=== PATIENT | female | born 1990 | race African-American/Black ===

== ENCOUNTER 2017-04-02 09:29 | Emergency (ER) | payer OTHER ==
[~2017-04-02] VITALS: Ht 154.9 cm; Wt 95.3 kg
[~2017-04-02 09:29] MED LIST: FOLIC ACID1 MG; METFORMIN HCL500 MG PO; NAPROSYN500 MG PO; NORCO 5-325 TA1 EACH PO; ONDANSETRON HCL4 M2 PO; PHENERGAN 25 MG25 M1 PO; PREDNISONE 20 M20 MG PO; PRILOSEC 20 MG20 MG PO; REGLAN 10 MG TA10 MG PO; TRAMADOL 50 MG50 MG PO
[2017-04-02 09:58] LABS: ABSOLUTE NEUTROPHILS 2.1 thou/uL (1.4-8.2); EOSINOPHILS 1.4 % (0.0-3.0); HEMATOCRIT 34.4 % (37.0-47.0); HEMOGLOBIN 11.5 gm/dL (12.0-15.0); MCH 25.6 pg (26.0-34.0); MCHC 33.5 g/dL (28.0-37.0); MCV 76.6 fL (80.0-100.0); PLATELET COUNT 276 thou/uL (150-400); POLYS 45.6 % (36.0-66.0); RBC 4.48 mil/uL (4.20-5.00); WBC 4.7 thou/uL (4.0-11.0)
[2017-04-02 09:59] LABS: MANUAL DIFF NO
[2017-04-02 10:11] LABS: ANION GAP 4 mmol/L (7-16); BUN 13 mg/dL (7-18); CALCIUM 8.8 mg/dL (8.5-10.1); CHLORIDE 105 mmol/L (98-107); CO2 29 mmol/L (21-32); CREATININE 0.8 mg/dL (0.6-1.0); GLUCOSE 92 mg/dL (74-106); POTASSIUM 4.6 mmol/L (3.5-5.1); SODIUM 138 mmol/L (136-145)
[2017-04-02 10:13] LABS: URINE BILIRUBIN NEGATIVE (Negative); URINE BLOOD 3+ (Negative); URINE COLOR YELLOW; URINE GLUCOSE-RANDOM* NEGATIVE (Negative); URINE KETONES NEGATIVE (Negative); URINE NITRITE NEGATIVE (Negative); URINE PROTEIN (DIPSTICK) NEGATIVE (Negative); URINE UROBILINOGEN 0.2 E.U./dl (0.2-1.0)
[2017-04-02 10:15] LABS: ALBUMIN 3.3 g/dL (3.4-5.0); ALKALINE PHOSPHATASE 52 U/L (46-116); DIRECT BILIRUBIN < 0.1 mg/dL (<0.1-0.3); SGOT 25 U/L (15-37); SGPT 31 U/L (30-65); TOTAL BILIRUBIN 0.3 mg/dL (<0.1-1.0); TOTAL PROTEIN 7.5 g/dL (6.4-8.2)
[2017-04-02 10:32] LABS: BACTERIA 1-9 Few /HPF (None Seen); CASTS None Seen /LPF (None Seen); CRYSTALS None Seen /LPF (None Seen); SQUAMOUS 4-10 Moderate /LPF (0-3); URINE RBC 0-2 Rare /HPF (0-2); URINE WBC 0-5 Rare /HPF (0-5)
[2017-04-02] MEDS ORDERED: OMEPRAZOLE40 MG PO (11:10)
[2017-04-02] MEDS ORDERED: CARAFATE 1 GM TA1 G1 PO (11:10)
[2017-04-02] MEDS ORDERED: ONDANSETRON HCL4 M2 PO (11:10)
[2017-04-02 11:29] VITALS: BP 107/71
== END 2017-04-02 11:30 | disposition home or self-care (01) ==
LOC: ER 09:29
PROVIDERS: Nurse Practitioner
DX: R11.2 Nausea with vomiting, unspecified (principal); R10.11 Right upper quadrant pain; E11.9 Type 2 diabetes mellitus without complications; F10.99 Alcohol use, unspecified with unspecified alcohol-induced disorder

== ENCOUNTER 2017-11-12 08:21 | Emergency (ER) | payer OTHER ==
[~2017-11-12] VITALS: Ht 154.9 cm; Wt 97.1 kg
[~2017-11-12 08:21] MED LIST changes: +CARAFATE 1 GM TA1 G1 PO; +OMEPRAZOLE40 MG PO
[2017-11-12 08:52] LABS: URINE BILIRUBIN NEGATIVE (Negative); URINE BLOOD 2+ (Negative); URINE CLARITY CLEAR; URINE COLOR YELLOW; URINE GLUCOSE-RANDOM* NEGATIVE (Negative); URINE KETONES NEGATIVE (Negative); URINE LEUKOCYTES NEGATIVE (Negative); URINE NITRITE NEGATIVE (Negative); URINE PROTEIN (DIPSTICK) NEGATIVE (Negative); URINE UROBILINOGEN 0.2 E.U./dl (0.2-1.0)
[2017-11-12 09:02] LABS: ABSOLUTE NEUTROPHILS 2.3 thou/uL (1.4-8.2); BASOPHILS 1.1 % (0.0-2.0); EOSINOPHILS 3.5 % (0.0-3.0); HEMOGLOBIN 12.2 gm/dL (12.0-15.0); LYMPHOCYTES 37.6 % (24.0-44.0); MCH 25.2 pg (26.0-34.0); MCV 76.4 fL (80.0-100.0); MONOCYTES 9.2 % (1.0-8.0); PLATELET COUNT 277 thou/uL (150-400); POLYS 48.6 % (36.0-66.0); RBC 4.84 mil/uL (4.20-5.00); RDW 14.7 % (10.5-14.5); WBC 4.8 thou/uL (4.0-11.0)
[2017-11-12 09:03] LABS: BACTERIA 1-9 Few /HPF (None Seen); CASTS None Seen /LPF (None Seen); CRYSTALS None Seen /LPF (None Seen); SQUAMOUS 4-10 Moderate /LPF (0-3); URINE RBC 3-10 Few /HPF (0-2); URINE WBC 0-5 Rare /HPF (0-5)
[2017-11-12 09:14] LABS: CALCIUM 9.2 mg/dL (8.5-10.1); CREATININE 0.9 mg/dL (0.6-1.0); POTASSIUM 3.9 mmol/L (3.5-5.1)
[2017-11-12 09:19] LABS: ALBUMIN 3.3 g/dL (3.4-5.0); DIRECT BILIRUBIN 0.1 mg/dL (<0.1-0.3); TOTAL BILIRUBIN 0.4 mg/dL (<0.1-1.0); TOTAL PROTEIN 7.4 g/dL (6.4-8.2)
[2017-11-12] MEDS ORDERED: ZOFRAN ODT4 MG PO (10:11)
[2017-11-12] MEDS ORDERED: ATIVAN0.5 MG PO (10:14)
== END 2017-11-12 10:23 | disposition home or self-care (01) ==
LOC: ER
PROVIDERS: Emergency Medicine
DX: R10.11 Right upper quadrant pain (principal); R11.0 Nausea; E11.9 Type 2 diabetes mellitus without complications

== ENCOUNTER 2018-03-17 00:11 | Emergency (ER) | payer OTHER ==
[~2018-03-17] VITALS: Ht 154.9 cm; Wt 104.3 kg
[~2018-03-17 00:11] MED LIST changes: +ATIVAN0.5 MG PO; +ZOFRAN ODT4 MG PO
[2018-03-17 01:03] LABS: URINE BILIRUBIN NEGATIVE (Negative); URINE BLOOD TRACE (Negative); URINE CLARITY CLEAR; URINE COLOR YELLOW; URINE GLUCOSE-RANDOM* NEGATIVE (Negative); URINE KETONES NEGATIVE (Negative); URINE LEUKOCYTES-REFLEX NEGATIVE (Negative); URINE NITRITE-REFLEX NEGATIVE (Negative); URINE PROTEIN (DIPSTICK) NEGATIVE (Negative); URINE UROBILINOGEN 0.2 E.U./dl (0.2-1.0)
[2018-03-17 01:07] LABS: BASOPHILS 0.8 % (0.0-2.0); EOSINOPHILS 0.8 % (0.0-3.0); HEMATOCRIT 36.2 % (37.0-47.0); HEMOGLOBIN 12.2 gm/dL (12.0-15.0); LYMPHOCYTES 32.9 % (24.0-44.0); MCH 25.3 pg (26.0-34.0); MCHC 33.8 g/dL (28.0-37.0); MCV 74.8 fL (80.0-100.0); MONOCYTES 6.8 % (1.0-8.0); PLATELET COUNT 321 thou/uL (150-400); POLYS 58.7 % (36.0-66.0); RBC 4.83 mil/uL (4.20-5.00)
[2018-03-17 01:13] LABS: CALCIUM 8.9 mg/dL (8.5-10.1); CREATININE 0.9 mg/dL (0.6-1.0)
[2018-03-17 01:21] LABS: ALBUMIN 3.5 g/dL (3.4-5.0); TOTAL BILIRUBIN 0.2 mg/dL (<0.1-1.0); TOTAL PROTEIN 8.1 g/dL (6.4-8.2)
[2018-03-17] MEDS ORDERED: ZOFRAN ODT8 MG PO (01:54)
[2018-03-17 02:31] VITALS: BP 114/65
== END 2018-03-17 02:33 | disposition home or self-care (01) ==
LOC: ER 00:11
PROVIDERS: Emergency Medicine
DX: R11.2 Nausea with vomiting, unspecified (principal); R19.7 Diarrhea, unspecified; R10.10 Upper abdominal pain, unspecified; E11.9 Type 2 diabetes mellitus without complications

== ENCOUNTER 2019-06-28 03:39 | Emergency (ER) | payer OTHER ==
[~2019-06-28] VITALS: Ht 154.9 cm; Wt 103.0 kg
[~2019-06-28 03:39] MED LIST changes: +ZOFRAN ODT8 MG PO
[2019-06-28] MEDS ORDERED: ONDANSETRON HCL4 M2 (03:46)
[2019-06-28 04:21] LABS: ABSOLUTE NEUTROPHILS 3.8 thou/uL (1.4-8.2); BASOPHILS 0.7 % (0.0-2.0); HEMATOCRIT 35.6 % (37.0-47.0); HEMOGLOBIN 11.7 gm/dL (12.0-15.0); LYMPHOCYTES 23.9 % (24.0-44.0); MCH 25.1 pg (26.0-34.0); MCHC 32.9 g/dL (28.0-37.0); MCV 76.3 fL (80.0-100.0); MONOCYTES 6.6 % (1.0-8.0); PLATELET COUNT 322 thou/uL (150-400); POLYS 67.8 % (36.0-66.0); RBC 4.67 mil/uL (4.20-5.00); RDW 14.6 % (10.5-14.5); WBC 5.5 thou/uL (4.0-11.0)
[2019-06-28 04:36] LABS: ALBUMIN 3.5 g/dL (3.4-5.0); TOTAL BILIRUBIN 0.3 mg/dL (<0.1-1.0); TOTAL PROTEIN 7.7 g/dL (6.4-8.2)
[2019-06-28 04:51] LABS: URINE BILIRUBIN NEGATIVE (Negative); URINE BLOOD 2+ (Negative); URINE CLARITY CLEAR; URINE COLOR YELLOW; URINE GLUCOSE-RANDOM* NEGATIVE (Negative); URINE KETONES NEGATIVE (Negative); URINE LEUKOCYTES NEGATIVE (Negative); URINE NITRITE NEGATIVE (Negative); URINE PROTEIN (DIPSTICK) NEGATIVE (Negative); URINE SPECIFIC GRAVITY 1.025 (1.005-1.035); URINE UROBILINOGEN 0.2 E.U./dl (0.2-1.0)
[2019-06-28] MEDS ORDERED: ZOFRAN ODT4 MG PO (05:21)
[2019-06-28 05:29] LABS: BACTERIA 1-9 Few /HPF (None Seen); CASTS None Seen /LPF (None Seen); CRYSTALS None Seen /LPF (None Seen); MUCUS 4-6 Moderate strn/LPF (None Seen); SQUAMOUS 4-10 Moderate /LPF (0-3); URINE WBC 0-5 Rare /HPF (0-5)
[2019-06-28 05:58] VITALS: BP 130/67
== END 2019-06-28 05:59 | disposition home or self-care (01) ==
LOC: ER 03:39
PROVIDERS: Emergency Medicine
DX: R11.2 Nausea with vomiting, unspecified (principal); E11.9 Type 2 diabetes mellitus without complications

== ENCOUNTER 2019-08-01 13:22 | Emergency (ER) | payer OTHER ==
[~2019-08-01] VITALS: Ht 154.9 cm; Wt 104.3 kg
[~2019-08-01 13:22] MED LIST changes: +ONDANSETRON HCL4 M2
[2019-08-01 13:42] LABS: URINE BILIRUBIN NEGATIVE (Negative); URINE BLOOD 1+ (Negative); URINE CLARITY CLEAR; URINE COLOR YELLOW; URINE GLUCOSE-RANDOM* NEGATIVE (Negative); URINE KETONES NEGATIVE (Negative); URINE LEUKOCYTES-REFLEX NEGATIVE (Negative); URINE NITRITE-REFLEX NEGATIVE (Negative); URINE PROTEIN (DIPSTICK) NEGATIVE (Negative); URINE UROBILINOGEN 0.2 E.U./dl (0.2-1.0)
[2019-08-01 13:53] LABS: AMP/METHAMP Negative (Negative); BARBITURATES Negative (Negative); BENZODIAZEPINES Negative (Negative); COCAINE Negative (Negative); METHADONE Negative (Negative); OPIATES Negative (Negative); PCP Negative (Negative)
[2019-08-01 14:23] LABS: HEMATOCRIT 35.9 % (37.0-47.0); HEMOGLOBIN 11.6 gm/dL (12.0-15.0); MCH 24.9 pg (26.0-34.0); MCHC 32.3 g/dL (28.0-37.0); MCV 77.1 fL (80.0-100.0); RBC 4.66 mil/uL (4.20-5.00); RDW 14.6 % (10.5-14.5); WBC 4.6 thou/uL (4.0-11.0)
[2019-08-01 14:36] LABS: ANION GAP 9 mmol/L (7-16); BUN 12 mg/dL (7-18); CALCIUM 9.6 mg/dL (8.5-10.1); CHLORIDE 102 mmol/L (98-107); CO2 29 mmol/L (21-32); CREATININE 0.9 mg/dL (0.6-1.0); GLUCOSE 86 mg/dL (74-106); POTASSIUM 3.3 mmol/L (3.5-5.1); SALICYLATE < 2.8 mg/dL (2.8-20.0); SODIUM 140 mmol/L (136-145)
[2019-08-01 16:09] LABS: BACTERIA-REFLEX 1-9 Few /HPF (None Seen); CASTS None Seen /LPF (None Seen); CRYSTALS None Seen /LPF (None Seen); SQUAMOUS 0-3 Few /LPF (0-3); URINE RBC 0-2 Rare /HPF (0-2); URINE WBC-REFLEX 0-5 Rare /HPF (0-5)
[2019-08-01 23:25] VITALS: BP 114/61
== END 2019-08-01 23:25 | disposition designated cancer center or children's hospital (05) ==
LOC: ER 13:22
PROVIDERS: Emergency Medicine
DX: R45.851 Suicidal ideations (principal); E11.9 Type 2 diabetes mellitus without complications; F41.9 Anxiety disorder, unspecified

== ENCOUNTER 2019-11-30 19:50 | Emergency (ER) | payer OTHER ==
[~2019-11-30] VITALS: Ht 157.5 cm; Wt 108.0 kg
[2019-11-30] MEDS ORDERED: BUSPIRONE HCL10 MG PO (19:56)
[2019-11-30] MEDS ORDERED: LEXAPRO20 MG PO (19:56)
[2019-11-30 21:00] VITALS: BP 118/57
[2019-11-30] MEDS ORDERED: PEPCID20 MG PO (21:03)
[2019-11-30] MEDS ORDERED: PREDNISONE 20 M20 M1 PO (21:03)
[2019-11-30] MEDS ORDERED: BENADRYL25 MG PO (21:03)
== END 2019-11-30 21:17 | disposition home or self-care (01) ==
LOC: ER 19:50
DX: T78.1XXA Other adverse food reactions, not elsewhere classified, initial encounter (principal); R21 Rash and other nonspecific skin eruption; Z79.899 Other long term (current) drug therapy; X58.XXXA Exposure to other specified factors, initial encounter

== ENCOUNTER 2020-06-05 07:02 | Emergency (ER) | payer OTHER ==
[~2020-06-05] VITALS: Ht 157.5 cm; Wt 99.3 kg
[~2020-06-05 07:02] MED LIST changes: +BENADRYL25 MG PO; +BUSPIRONE HCL10 MG PO; +LEXAPRO20 MG PO; +PEPCID20 MG PO; +PREDNISONE 20 M20 M1 PO
[2020-06-05 07:53] LABS: URINE BILIRUBIN NEGATIVE (Negative); URINE BLOOD TRACE (Negative); URINE CLARITY CLEAR; URINE COLOR YELLOW; URINE GLUCOSE-RANDOM* NEGATIVE (Negative); URINE KETONES NEGATIVE (Negative); URINE LEUKOCYTES-REFLEX NEGATIVE (Negative); URINE NITRITE-REFLEX NEGATIVE (Negative); URINE PROTEIN (DIPSTICK) NEGATIVE (Negative); URINE SPECIFIC GRAVITY 1.015 (1.005-1.035); URINE UROBILINOGEN 0.2 E.U./dl (0.2-1.0)
[2020-06-05 07:59] LABS: HEMATOCRIT 36.3 % (37.0-47.0); MCHC 33.1 g/dL (28.0-37.0); MCV 75.4 fL (80.0-100.0); RBC 4.81 mil/uL (4.20-5.00); RDW 15.1 % (10.5-14.5); WBC 8.8 thou/uL (4.0-11.0)
[2020-06-05 08:00] LABS: CALCIUM 9.1 mg/dL (8.5-10.1); CREATININE 0.8 mg/dL (0.6-1.0); POTASSIUM 4.1 mmol/L (3.5-5.1)
[2020-06-05 08:06] LABS: ALBUMIN 3.7 g/dL (3.4-5.0); TOTAL BILIRUBIN 0.4 mg/dL (0.2-1.0); TOTAL PROTEIN 8.3 g/dL (6.4-8.2)
[2020-06-05] MEDS ORDERED: ZOFRAN ODT4 MG PO (08:30)
[2020-06-05] MEDS ORDERED: PEPCID40 MG PO (08:30)
[2020-06-05 08:39] VITALS: BP 136/71
[2020-06-05 09:13] LABS: ABSOLUTE NEUTROPHILS 5.9 thou/uL (1.4-8.2); PLATELET COUNT 186 thou/uL (150-400)
[2020-06-05 09:14] LABS: ANISOCYTOSIS SLIGHT
== END 2020-06-05 08:39 | disposition home or self-care (01) ==
LOC: ER 07:02
PROVIDERS: Emergency Medicine
DX: K29.70 Gastritis, unspecified, without bleeding (principal); F10.10 Alcohol abuse, uncomplicated; Y90.9 Presence of alcohol in blood, level not specified

== ENCOUNTER 2021-02-28 09:42 | Emergency (ER) | payer OTHER ==
[~2021-02-28] VITALS: Ht 157.5 cm; Wt 99.3 kg
[~2021-02-28 09:42] MED LIST changes: +PEPCID40 MG PO
[2021-02-28 11:32] LABS: URINE BILIRUBIN NEGATIVE (Negative); URINE BLOOD 1+ (Negative); URINE CLARITY CLEAR; URINE COLOR YELLOW; URINE GLUCOSE-RANDOM* NEGATIVE (Negative); URINE KETONES NEGATIVE (Negative); URINE LEUKOCYTES-REFLEX NEGATIVE (Negative); URINE NITRITE-REFLEX NEGATIVE (Negative); URINE PROTEIN (DIPSTICK) NEGATIVE (Negative); URINE UROBILINOGEN 0.2 E.U./dl (0.2-1.0)
[2021-02-28 11:43] LABS: SQUAMOUS 0-3 Few /LPF (0-3)
[2021-02-28 11:44] LABS: BACTERIA-REFLEX 1-9 Few /HPF (None Seen); CASTS None Seen /LPF (None Seen); CRYSTALS None Seen /LPF (None Seen); URINE RBC 1-2 Rare /HPF (NONE SEEN); URINE WBC-REFLEX None Seen /HPF (0-5)
[2021-02-28 14:27] VITALS: BP 129/56
== END 2021-02-28 14:28 | disposition home or self-care (01) ==
LOC: ER 09:42
PROVIDERS: Emergency Medicine
DX: J06.9 Acute upper respiratory infection, unspecified (principal); Z20.822 Contact with and (suspected) exposure to COVID-19

== ENCOUNTER 2021-03-31 13:57 | Emergency (ER) | payer OTHER ==
[~2021-03-31] VITALS: Ht 157.5 cm; Wt 94.8 kg
--- NOTE | 2021-03-31 16:51 | EKG ---
[address] [address] [place] [address] ELECTROCARDIOGRAM RE[facility]: REG M.R.#: [id number] Admission: 03/31/21 Attend Phys: Discharge: Date of : [birth year] Report #: [id number] [facility] ED Test Date: 2021-03-31 Test Time: 14:05:41 Pat Name: IMMANUEL PERRY Department: Room: Gender: F Telephone Information Supervisor: TOSHA : 1990 Requested By: Darrin Frey Order Number: [id number] MD: Bebo French Measurements Intervals [place] Rate: 86 P: 55 CT: 168 QRS: 26 QRSD: 86 T: 7 QT: 382 QTc: 457 Interpretive Statements Sinus rhythm Baseline wander in lead(s) V4 No previous ECG available for comparison Electronically Signed On 03-31-2021 16:51:20 CDT by Bebo French [email or web address] <ELECTRONICALLY SIGNED> By: Bebo French MD, [facility] 03/31/21 1651 1405 1405 Bebo French MD, FACC /EPI
[2021-04-01] MEDS ORDERED: LEXAPRO20 MG PO (06:24)
[2021-04-01] MEDS ORDERED: ESCITALOPRA5 MG/5 ML PO (06:25)
== END 2021-03-31 15:44 | disposition left against medical advice (07) ==
LOC: ER 13:57
DX: R07.89 Other chest pain (principal); Z53.21 Procedure and treatment not carried out due to patient leaving prior to being seen by health care provider

== ENCOUNTER 2021-04-01 04:53 | Emergency (ER) | payer OTHER ==
[~2021-04-01] VITALS: Ht 157.5 cm; Wt 94.8 kg
[2021-04-01] MEDS ORDERED: LEXAPRO20 MG PO (06:24)
[2021-04-01] MEDS ORDERED: ESCITALOPRA5 MG/5 ML PO (06:25)
[2021-04-01 10:50] VITALS: BP 122/81
--- NOTE | 2021-04-01 11:41 | EKG ---
[address] [address] [place] [address] ELECTROCARDIOGRAM REPORT [facility]: [facility]: DEP DANNY Stubbs#: [id number] Admission: 04/01/21 Attend Phys: Discharge: 04/01/21 Date of : [birth year] Report #: [id number] [facility] ED Test Date: 2021-04-01 Test Time: 05:01:55 Pat Name: IMMANUEL PERRY Department: Room: Gender: F Curriculum Consultant: SHAQUILLE : 1990 Requested By: Mai King Order Number: [id number] MD: Bebo French Measurements Intervals [place] Rate: 67 P: 36 W[place]: 177 QRS: 19 QRSD: 82 T: 11 QT: 378 QTc: 399 Interpretive Statements Sinus rhythm Baseline wander in lead(s) III Compared to ECG 03/31/2021 14:05:41 No significant changes Electronically Signed On 04-01-2021 11:41:16 CDT by Bebo French [email or web address] <ELECTRONICALLY SIGNED> By: Bebo French MD, [facility] 04/01/21 1141 D: [id number] 0 Bebo French MD, FACC /EPI
== END 2021-04-01 11:30 | disposition home or self-care (01) ==
LOC: ER 04:53
DX: J06.9 Acute upper respiratory infection, unspecified (principal); R07.89 Other chest pain; F32.9 Major depressive disorder, single episode, unspecified; F41.9 Anxiety disorder, unspecified; Z79.899 Other long term (current) drug therapy; Z20.822 Contact with and (suspected) exposure to COVID-19

== ENCOUNTER 2021-09-26 08:03 | Emergency (ER) | payer OTHER ==
[~2021-09-26] VITALS: Ht 157.5 cm; Wt 95.3 kg
[~2021-09-26 08:03] MED LIST changes: +ESCITALOPRA5 MG/5 ML PO
[2021-09-26 08:22] VITALS: BP 109/74
== END 2021-09-26 09:14 | disposition home or self-care (01) ==
LOC: ER 08:03
DX: J06.9 Acute upper respiratory infection, unspecified (principal); Z20.822 Contact with and (suspected) exposure to COVID-19; F32.9 Major depressive disorder, single episode, unspecified; F41.9 Anxiety disorder, unspecified; Z79.899 Other long term (current) drug therapy

== ENCOUNTER 2021-10-15 09:24 | Emergency (ER) | payer OTHER ==
[~2021-10-15] VITALS: Ht 157.5 cm; Wt 97.5 kg
[2021-10-15] MEDS ORDERED: NOHOMEMEDICATIONS (09:59)
[2021-10-15 11:19] VITALS: BP 120/65
== END 2021-10-15 11:19 | disposition home or self-care (01) ==
LOC: ER 09:24
DX: R51.9 Headache, unspecified (principal); F32.9 Major depressive disorder, single episode, unspecified; F41.9 Anxiety disorder, unspecified

== ENCOUNTER 2021-10-22 10:13 | Emergency (ER) | payer OTHER ==
[~2021-10-22] VITALS: Ht 157.5 cm; Wt 95.3 kg
[~2021-10-22 10:13] MED LIST changes: +NOHOMEMEDICATIONS
[2021-10-22 10:17] VITALS: BP 141/80
== END 2021-10-22 12:51 | disposition home or self-care (01) ==
LOC: ER 10:13
DX: M79.89 Other specified soft tissue disorders (principal); F41.9 Anxiety disorder, unspecified; F32.9 Major depressive disorder, single episode, unspecified